=== PATIENT | male | born 1965 | race Caucasian/White ===

== ENCOUNTER 2019-12-14 17:45 | Inpatient (IN) | payer BC ==
[~2019-12-14] VITALS: Ht 190.5 cm; Wt 107.2 kg
[2019-12-14 18:32] LABS: BASOPHILS % (AUTO) 0.3 % (0.0-5.0); EOSINOPHILS % (AUTO) 0.4 % (0.0-8.0); HEMATOCRIT 44.9 % (42-54); LYMPHOCYTES % (AUTO) 20.9 % (21.0-51.0); MEAN CORPUSCULAR HEMOGLOBIN 29.7 pg (27.0-33.0); MEAN CORPUSCULAR HGB CONC 35.4 g/dL (32.0-36.0); MEAN CORPUSCULAR VOLUME 83.9 fL (79-99); MONOCYTES % (AUTO) 6.5 % (3.0-13.0); NEUTROPHILS % (AUTO) 71.6 % (40.0-77.0); PLATELET COUNT (AUTO) 215 K/uL (130-400); RED BLOOD CELL COUNT(AUTO) 5.35 MIL/uL (4.50-6.20); WHITE BLOOD COUNT (AUTO) 13.5 K/uL (4.8-10.8)
[2019-12-14 18:46] LABS: APPEARANCE,URINE Clear (CLEAR); BILIRUBIN,URINE Negative (NEGATIVE); COLOR,URINE Yellow (YELLOW); GLUCOSE, URINE (UA) Negative (NEGATIVE); KETONES,URINE Negative (NEGATIVE); LEUKOCYTE ESTERASE ,URINE Negative (NEGATIVE); NITRATE,URINE Negative (NEGATIVE); OCCULT BLOOD,URINE Negative (NEGATIVE); PROTEIN,URINE 300 mg/dL (NEGATIVE)
[2019-12-14 18:49] LABS: CREATININE 1.1 mg/dL (0.5-1.5); POTASSIUM 3.9 mmol/L (3.5-5.1)
[2019-12-14 18:54] LABS: ALBUMIN 3.9 g/dL (3.5-5.0); BILIRUBIN,TOTAL 0.9 mg/dL (0.2-1.0); TOTAL PROTEIN, SERUM 7.7 g/dL (6.0-8.3)
[2019-12-14 18:54] LABS: RBC,URINE 0-1 /HPF (0-1)
[2019-12-14 18:55] LABS: AMPHET/METH SCREEN,URINE NEGATIVE (NEGATIVE); BACTERIA,URINE Rare /HPF (None Seen); BARBITURATE SCREEN, URINE NEGATIVE (NEGATIVE); BENZODIAZEPINES SCREEN,URINE NEGATIVE (NEGATIVE); CANNABINOID SCREEN,URINE NEGATIVE (NEGATIVE); COCAINE SCREEN,URINE NEGATIVE (NEGATIVE); OPIATE SCREEN,URINE NEGATIVE (NEGATIVE); PHENCYCLIDINE SCREEN,URINE NEGATIVE (NEGATIVE); SQUAMOUS EPITHELIAL CELL,UR Rare /HPF (0-2)
[2019-12-14 19:05] LABS: INR 1.11 (0.85-1.15); PARTIAL THROMBOPLASTIN TIME 28.2 SEC (26.3-35.5); PROTHROMBIN TIME 11.9 SEC (9.6-11.6)
[2019-12-14] MEDS ORDERED: IOHEXOL-350 75 ML VIAL IV ONE (21:49)
[2019-12-14] MEDS ORDERED: ENOXAPARIN SODIUM 100 MG/1 ML SQ ONE (22:55)
[2019-12-14] MEDS ORDERED: SODIUM CHLORIDE 0.9% 1000ML 1,000 ML IV SCH (23:39)
[2019-12-14] MEDS ORDERED: HYDRALAZINE HCL 20 MG/ML VIAL IV PRN (23:45)
[2019-12-14] MEDS ORDERED: MORPHINE SULFATE 2 MG/ML 1ML SYG IV PRN (23:45)
[2019-12-14] MEDS ORDERED: LACTULOSE 20 GM/30 ML UDCUP PO PRN (23:45)
[2019-12-14] MEDS ORDERED: ONDANSETRON HCL 4 MG/2 ML VIAL IV PRN (23:45)
[2019-12-14] MEDS ORDERED: ACETAMINOPHEN 325 MG TAB PO PRN ×2 (23:45)
[2019-12-15] VITALS (20 sets, daily range): BP systolic 88–131; BP diastolic 58–82
[2019-12-15] MEDS ORDERED: ALPRAZOLAM 0.5 MG TABLET PO ONE (00:30)
[2019-12-15] MEDS ORDERED: ALPRAZOLAM 1 MG TAB PO ONE (00:45)
[2019-12-15] MEDS ORDERED: ALPRAZOLAM 1 MG TAB ONE (00:57)
[2019-12-15] MEDS ORDERED: MORPHINE SULFATE 2 MG/ML 1ML SYG ONE (02:36)
[2019-12-15] MEDS ORDERED: ONDANSETRON HCL 4 MG/2 ML VIAL ONE (02:36)
[2019-12-15 04:43] LABS: BASOPHILS % (AUTO) 0.1 % (0.0-5.0); HEMATOCRIT 44.8 % (42-54); LYMPHOCYTES % (AUTO) 13.6 % (21.0-51.0); MEAN CORPUSCULAR HEMOGLOBIN 29.2 pg (27.0-33.0); MEAN CORPUSCULAR HGB CONC 34.2 g/dL (32.0-36.0); MEAN CORPUSCULAR VOLUME 85.5 fL (79-99); MONOCYTES % (AUTO) 4.8 % (3.0-13.0); NEUTROPHILS % (AUTO) 81.2 % (40.0-77.0); PLATELET COUNT (AUTO) 202 K/uL (130-400); RED BLOOD CELL COUNT(AUTO) 5.24 MIL/uL (4.50-6.20); RED CELL DISTRIBUTION WIDTH 13.2 % (11.0-15.5); WHITE BLOOD COUNT (AUTO) 14.7 K/uL (4.8-10.8)
[2019-12-15 04:56] LABS: CREATININE 1.1 mg/dL (0.5-1.5); POTASSIUM 4.6 mmol/L (3.5-5.1)
[2019-12-15] MEDS ORDERED: ALPRAZOLAM 0.25 MG TABLET PO PRN (05:15)
[2019-12-15] MEDS ORDERED: ASPIRIN 325 MG TABLET PO STA (05:26)
[2019-12-15] MEDS ORDERED: ASPIRIN 325 MG TABLET ONE (05:36)
[2019-12-15 07:04] LABS: CHOLESTEROL 141 mg/dL (<200); HDL CHOLESTEROL 41 mg/dL (29-71); LDL DIRECT 83 mg/dL (0-99); TRIGLYCERIDES 113 mg/dL (30-200)
[2019-12-15 07:05] LABS: HEMOGLOBIN A1C 7.6 % (4.0-6.0)
[2019-12-15] MEDS ORDERED: ENOXAPARIN SODIUM 100 MG/1 ML SQ ONE (08:12)
[2019-12-15] MEDS: ENOXAPARIN SODIUM 100 MG/1 ML SQ SCH ×2 (08:33→21:27)
[2019-12-15] MEDS ORDERED: METOPROLOL TARTRATE 25 MG TAB PO SCH (09:00)
[2019-12-15] MEDS ORDERED: INSU3INS5 SQ ×2 (09:19)
[2019-12-15] MEDS: FAMOTIDINE 20MG TAB 20 MG TAB PO SCH ×2 (09:43→21:24)
[2019-12-15] MEDS: INSULIN HUMULIN R 100 UNIT/ML 3ML SQ SCH ×3 (09:45→17:20)
--- NOTE | 2019-12-15 10:21 | NUR ---
DC Plan Discussed dcp with patient. States lives with and 85 y/o mother. Independently performs ADLs. Denies any HH, provider, or DME. States feels safe returning home upon discharge. DCP is to home with . Addendum: 12/15/19 at 1023 by KELSEA CINTRON Amended: Links added.
[2019-12-15] MEDS: ATORVASTATIN CALCIUM 20 MG TABLET PO SCH (21:24)
--- NOTE | 2019-12-15 22:43 | NUR ---
Glucometer results 204 at 2100. States had just finished eating supper. Would like bedside glucose rechecked at midnight. Reassured this would be possible. Comfort measures done. Call light and needed items placed readily at hand. Encouraged to call prn.
[2019-12-16] VITALS (24 sets, daily range): BP systolic 88–141; BP diastolic 30–86
[2019-12-16] MEDS: INSULIN HUMULIN R 100 UNIT/ML 3ML SQ SCH ×5 (00:10→20:46)
[2019-12-16 05:50] LABS: BASOPHILS % (AUTO) 0.3 % (0.0-5.0); EOSINOPHILS % (AUTO) 0.9 % (0.0-8.0); HEMATOCRIT 41.6 % (42-54); LYMPHOCYTES % (AUTO) 27.1 % (21.0-51.0); MEAN CORPUSCULAR HEMOGLOBIN 29.3 pg (27.0-33.0); MEAN CORPUSCULAR HGB CONC 33.9 g/dL (32.0-36.0); MEAN CORPUSCULAR VOLUME 86.5 fL (79-99); MONOCYTES % (AUTO) 5.3 % (3.0-13.0); NEUTROPHILS % (AUTO) 66.1 % (40.0-77.0); PLATELET COUNT (AUTO) 187 K/uL (130-400); RED BLOOD CELL COUNT(AUTO) 4.81 MIL/uL (4.50-6.20); WHITE BLOOD COUNT (AUTO) 11.4 K/uL (4.8-10.8)
[2019-12-16 06:14] LABS: POTASSIUM 4.2 mmol/L (3.5-5.1)
[2019-12-16] MEDS: ASPIRIN 81MG TAB.CHEW PO SCH (08:03)
[2019-12-16] MEDS: ENOXAPARIN SODIUM 100 MG/1 ML SQ SCH ×2 (08:03→20:44)
[2019-12-16] MEDS: FAMOTIDINE 20MG TAB 20 MG TAB PO SCH ×2 (08:03→20:44)
[2019-12-16] MEDS: ATORVASTATIN CALCIUM 20 MG TABLET PO SCH (20:44)
[2019-12-17] VITALS (12 sets, daily range): BP systolic 108–143; BP diastolic 53–89
[2019-12-17] MEDS ORDERED: GUAIFENESIN-DM 200/20 MG 10 ML PO PRN (00:15)
[2019-12-17 03:53] LABS: BASOPHILS % (AUTO) 0.4 % (0.0-5.0); EOSINOPHILS % (AUTO) 1.4 % (0.0-8.0); HEMATOCRIT 39.6 % (42-54); LYMPHOCYTES % (AUTO) 32.6 % (21.0-51.0); MEAN CORPUSCULAR HEMOGLOBIN 29.3 pg (27.0-33.0); MEAN CORPUSCULAR HGB CONC 34.3 g/dL (32.0-36.0); MEAN CORPUSCULAR VOLUME 85.3 fL (79-99); MONOCYTES % (AUTO) 4.9 % (3.0-13.0); NEUTROPHILS % (AUTO) 60.6 % (40.0-77.0); PLATELET COUNT (AUTO) 198 K/uL (130-400); RED BLOOD CELL COUNT(AUTO) 4.64 MIL/uL (4.50-6.20); RED CELL DISTRIBUTION WIDTH 12.8 % (11.0-15.5); WHITE BLOOD COUNT (AUTO) 8.4 K/uL (4.8-10.8)
[2019-12-17 04:05] LABS: POTASSIUM 3.9 mmol/L (3.5-5.1)
[2019-12-17] MEDS: INSULIN HUMULIN R 100 UNIT/ML 3ML SQ SCH ×4 (06:28→21:39)
[2019-12-17] MEDS: FAMOTIDINE 20MG TAB 20 MG TAB PO SCH ×2 (08:17→21:31)
[2019-12-17] MEDS: ASPIRIN 81MG TAB.CHEW PO SCH (08:17)
[2019-12-17] MEDS: ENOXAPARIN SODIUM 100 MG/1 ML SQ SCH ×2 (08:18→21:00)
--- NOTE | 2019-12-17 08:52 | NUR ---
DC Plan Met with patient. Informed tentative plan is for discharge today on [employer] Provided $10 co-pay card and free 30 day card. Patient verbalized understanding to take the cards with prescription to the pharmacy. Also provided literature on Eliquis, provided by [employer] for patient to read up on. No other questions/concerns verbalized. Patient to dc back to home with . CD Addendum: 12/17/19 at 0858 by KELSEA CINTRON CM Amended: Links added.
--- NOTE | 2019-12-17 14:50 | NUR ---
[facility] CONSULT PATIENT ASSESSED REQUESTED: [facility] RECOMMENDATIONS SUBMITTED AND REPORT GIVEN TO PATIENT'S NURSE. Addendum: 12/18/19 at 1451 by JUANY RAMIREZ LVN Amended: Links added.
[2019-12-17] MEDS: APIXABAN 5 MG TABLET PO SCH ×2 (17:54→21:32)
--- NOTE | 2019-12-17 20:30 | NUR ---
AFTER TALKING TO HIS INTERMEDIATE DESIGNER PATIENT STOOD IN IN DOORWAY VERBALIZING HIS INTERMEDIATE DESIGNER STATED HE COULD TRANSFER TO ANOTHER ROOM. REPORT GIVEN TO JOVANI FRANCISCO. PATIENT TRANSFERRED TO ROOM 422 IN NO DISTRESS. VS STABLE.
[2019-12-17] MEDS: HONEY 1 APPL/ML TUBE TP SCH (21:00)
[2019-12-17] MEDS: ATORVASTATIN CALCIUM 20 MG TABLET PO SCH (21:31)
[2019-12-18 00:35] VITALS: BP 143/84
[2019-12-18 05:20] VITALS: BP 144/92
[2019-12-18] MEDS: INSULIN HUMULIN R 100 UNIT/ML 3ML SQ SCH ×2 (08:14→11:46)
[2019-12-18 08:30] VITALS: BP 146/82
[2019-12-18] MEDS: HONEY 1 APPL/ML TUBE TP SCH (09:00)
[2019-12-18] MEDS: FAMOTIDINE 20MG TAB 20 MG TAB PO SCH (09:01)
[2019-12-18] MEDS: ASPIRIN 81MG TAB.CHEW PO SCH (09:01)
[2019-12-18] MEDS ORDERED: PANT40TA PO (10:10)
[2019-12-18] MEDS ORDERED: APIX5TAB PO ×2 (10:10)
[2019-12-18] MEDS ORDERED: POLY17PO4 PO (10:17)
[2019-12-18] MEDS ORDERED: DOCU-116 PO (10:17)
--- NOTE | 2019-12-18 10:34 | NUR ---
ELIQUIS I ATTEMPTED TO GIVE PATIENT HIS SCHEDULED DOSE OF 10MG ELIQUIS, PATIENT STATED HE HAD RECEIVED 10MG DOSE OF ELIQUIS AT 0400 HOURS THIS MORNING, HELD DOSE AND RESCHEDULED WITH PHARMACY. DR. LING WAS NOTIFIED.
[2019-12-18 12:03] VITALS: BP 157/83
[2019-12-18] MEDS ORDERED: APIXABAN 5 MG TABLET PO SCH (15:00)
== END 2019-12-18 14:42 | disposition home or self-care (01) | DRG 299 ==
LOC: EDH 17:45 → EDHIP 23:39 → 2CH 12-15 09:17 → 4DH 12-17 20:44
PROVIDERS: ADMIT Hospitalist; ATTEND Hospitalist
DX: I82.412 Acute embolism and thrombosis of left femoral vein (principal); I26.99 Other pulmonary embolism without acute cor pulmonale; J96.01 Acute respiratory failure with hypoxia; R00.0 Tachycardia, unspecified; R79.89 Other specified abnormal findings of blood chemistry; I11.9 Hypertensive heart disease without heart failure; Z20.828 Contact with and (suspected) exposure to other viral communicable diseases; E11.9 Type 2 diabetes mellitus without complications; J33.8 Other polyp of sinus; Z86.711 Personal history of pulmonary embolism; Z91.041 Radiographic dye allergy status; Z83.3 Family history of diabetes mellitus; Z83.6 Family history of other diseases of the respiratory system; Z82.49 Family history of ischemic heart disease and other diseases of the circulatory system
CPT/HCPCS: 36415; 70450; 71046; 71275; 80048; 80053; 80061; 80305; 81001; 82550; 82948; 83036; 84484; 85025; 85378; 85610; 85730; 87635; 87804; 93005; 93306; 93308; 93880; 93970; G0378; J1650; J1815; J2405; Q9967; U0003

== ENCOUNTER → 2020-01-28 | Outpatient (CLI) | payer BC ==
[~2020-01-28] MED LIST: APIX5TAB PO; DOCU-116 PO; INSU3INS5 SQ; PANT40TA PO; POLY17PO4 PO
== END | disposition home or self-care (01) ==
LOC: SHCH 12:40
PROVIDERS: ATTEND Internal Medicine Cardiovascular Disease
DX: I26.99 Other pulmonary embolism without acute cor pulmonale (principal); I51.7 Cardiomegaly; R55 Syncope and collapse
CPT/HCPCS: 93306

== ENCOUNTER → 2020-10-06 | Outpatient (CLI) | payer BC ==
[~2020-10-06] MED LIST changes: -POLY17PO4 PO
== END | disposition home or self-care (01) ==
LOC: RAH 14:39
PROVIDERS: ATTEND Internal Medicine Cardiovascular Disease
DX: I26.99 Other pulmonary embolism without acute cor pulmonale (principal); Z86.711 Personal history of pulmonary embolism
CPT/HCPCS: 71046; 78582; A9540; A9558

== ENCOUNTER → 2022-03-30 | Outpatient (CLI) | payer OTHER | END | disposition home or self-care (01) | LOC: RAH 14:51 | PROVIDERS: ATTEND Internal Medicine Cardiovascular Disease | DX: I73.9 Peripheral vascular disease, unspecified (principal); I82.401 Acute embolism and thrombosis of unspecified deep veins of right lower extremity | CPT/HCPCS: 93925 ==

== ENCOUNTER 2024-05-19 18:33 | Emergency (ER) | payer OTHER ==
[~2024-05-19] VITALS: Ht 188 cm; Wt 113.4 kg
--- NOTE | 2024-05-19 19:44 | ERN ---
General Chief Complaint: Face Pain/Problem Stated Complaint: JAW PAIN, SWELLING Time Seen by MD: 18:45 Time Seen by Midlevel: 18:45 Source: patient History of Present Illness Initial Comments Patient is a 58-year-old male with a past medical history of generalized anxiety and deep vein thrombosis on Xarelto presenting to the emergency department with left facial pain/pressure that started at 2:30 p.m. today. Patient states he had a very stressful day at work today. He denies any focal weakness, numbness, vision changes, headache, or any other symptoms at this time. He was concerned that he may be having a stroke so he decided to report to the ER for further evaluation. Allergies: Coded Allergies: Iodinated Contrast Media (Verified Allergy, Unknown, 12/14/19) Home Meds Active Scripts Methylprednisolone (Medrol) 4 Mg Tab.ds.pk, 1 TAB PO AD for 6 Days, #21 TAB 0 Refills 6 on day 1 then reduce by one tablet daily until gone Prov:KARISSA CHURCH 05/19/24 Docusate Sodium (Colace) 100 Mg Capsule, 100 MG PO BID PRN for CONSTIPATION for 30 Days, #60 CAP 0 Refills Prov:CHENCHO BATES ACNP 12/18/19 Apixaban (Eliquis) 5 Mg Tablet, 5 MG PO BID for 30 Days, #60 TAB 3 Refills Prov:CHENCHO BATES ACNP 12/18/19 Pantoprazole Sodium (Protonix) 40 Mg Tablet.dr, 40 MG PO DAILY for 30 Days, #30 TAB 2 Refills Prov:CHENCHO BATES ACNP 12/18/19 Reported Medications Insuln Asp Prt/Insulin Aspart (Novolog Mix 70-30 Flexpen Syrn) 100 Unit/1 Ml Insuln.pen, 30 UNIT SQ DAILY, SYRINGE 12/15/19 Insuln Asp Prt/Insulin Aspart (Novolog Mix 70-30 Flexpen Syrn) 100 Unit/1 Ml Ins uln.pen, 20 UNIT SQ HS, SYRINGE 12/15/19 Past Medical History Past Medical History: Diabetes-Type II, Hypertension Medical History Other: PE Past Surgical History: None ROS Dictation CONSTITUTIONAL: Negative except for HPI HEAD/FACE: Negative except for HPI EENT: Negative except for HPI RESPIRATORY: Negative except for HPI GASTROINTESTINAL/ABDOMINAL: Negative except for HPI GENITOURINARY: Negative except for HPI MUSCULOSKELETAL: Negative except for HPI INTEGUMENTARY: Negative except for HPI NEUROLOGICAL/PSYCH: Negative except for HPI HEMATOLOGIC/LYMPHATIC: Negative except for HPI All Systems Negative, Except as noted above. 13 point review of systems assessed and all negative except for above. Physical Exam Physical Exam Dictation Vital Signs reviewed General Appearance: Alert, oriented x 3, no acute distress, well developed, nourished. Head and Face: non-traumatic. Eyes: PERRL, pink conjunctivas, eyelid no trauma, anterior chamber with arcus senilis. Ears: Pinnas intact and no signs of trauma or erythema ear canals clear and no discharge TM no erythema Nose: No discharge, no bleeding. Oropharynx: Mouth normal, tongue pink, pharynx clear,no erythema, tonsils no exudates, no abscesses noted, mucous membrane moist Neck: Supple, non-tender, no thyromegaly, no masses, no JVD, no bruits Breast:Deferred Chest:No tenderness, no crepitus, no paradoxical movement, no retractions Lungs:Clear, well-ventilated, symmetric, no rales, no wheezing, no rhonchi, no stridor, good breath sounds bilaterally Heart: Regular rate, regular rhythm, no murmur, no gallops Vascular: no peripheral edema, Abdomen: Soft, positive bowel sounds, nondistended, no guarding, nontender, no rebound, no masses no hepatomegaly, no splenomegaly, no Hudson's sign, no hernias. Rectal: Deferred Genital: Deferred Neurological: Normal speech, motor function intact, sensory function intact Musculoskeletal: Neck nontender, full range of motion, back nontender, full range of motion, Extremities: nontender, full range of motion Skin: Color pink, dry, no turgor, no rash, no lacerations, no abrasions, no contusions. Lymphatic: Deferred Results Laboratory and Microbiology Lab and Micro Result Laboratory Tests Test 05/19/24 19:20 05/19/24 19:35 Urine Color LIGHT-YELLOW (YELLOW) Urine Appearance CLEAR (CLEAR) Urine pH 5.5 (5.0-8.0) Urine Specific [place] 1.036 (1.001-1.031) Urine Protein NEGATIVE mg/dL (NEGATIVE) Urine Glucose (UA) >=1000 mg/dL (NEGATIVE) H Urine Ketones 40 mg/dL (NEGATIVE) H Urine Occult Blood NEGATIVE (NEGATIVE) Urine Nitrate NEGATIVE (NEGATIVE) Urine Bilirubin NEGATIVE mg/dL (NEGATIVE) Urine Urobilinogen 0.2 mg/dL (0.2-1.0) Urine Leukocyte Esterase NEGATIVE Jeffry/uL Urine RBC 0-1 /HPF (0-1) Urine WBC 2-5 /HPF (0-1) H Urine Bacteria None /HPF (None Seen) White Blood Count 9.1 K/uL (4.8-10.8) Red Blood Count 5.54 MIL/uL (4.50-6.20) Hemoglobin 16.7 g/dL (14.0-18.0) Hematocrit 48.3 % (42-54) Mean Corpuscular Volume 87.2 fL (79-99) Mean Corpuscular Hemoglobin 30.1 pg (27.0-33.0) Mean Corpuscular Hemoglobin Concent 34.6 g/dL (32.0-36.0) Red Cell Distribution Width 13.5 % (11.0-15.5) Platelet Count 220 K/uL (130-400) Mean Platelet Volume 10.5 fL (7.5-10.5) Immature Granulocyte % (Auto) 0.3 % (0-1) Neutrophils (%) (Auto) 66.7 % (40.0-77.0) Lymphocytes (%) (Auto) 27.0 % (21.0-51.0) Monocytes (%) (Auto) 5.0 % (3.0-13.0) Eosinophils (%) (Auto) 0.6 % (0.0-8.0) Basophils (%) (Auto) 0.4 % (0.0-5.0) Neutrophils # (Auto) 6.0 K/uL (1.8-7.7) Lymphocytes # (Auto) 2.5 K/uL (1.0-4.8) Monocytes # (Auto) 0.5 K/uL (0.1-1.0) Eosinophils # (Auto) 0.05 K/uL (0.00-0.70) Basophils # (Auto) 0.04 K/uL (0.00-0.20) Absolute Immature Granulocyte (auto 0.03 K/uL (0-1) Nucleated Red Blood Cells 0.0 % (0.0-0.19) Sodium Level 139 mmol/L (136-145) Potassium Level 4.1 mmol/L (3.5-5.1) Chloride Level 102 mmol/L (101-111) Carbon Dioxide Level 29 mmol/L (21-32) Blood Urea Nitrogen 12 mg/dL (7-18) Creatinine 1.0 mg/dL (0.5-1.3) Glomerular Filtration Rate Calc 86 mL/min (>90) Random Glucose 144 mg/dL (70-105) H Total Calcium 8.6 mg/dL (8.5-10.1) Labs Reviewed?: Yes MDM MDM: Patient is a 58-year-old male with a past medical history of generalized anxiety and deep vein thrombosis on Xarelto presenting to the emergency department with left facial pain/pressure that started at 2:30 p.m. today. Patient states he had a very stressful day at work today. He denies any focal weakness, numbness, vision changes, headache, or any other symptoms at this time. He was concerned that he may be having a stroke so he decided to report to the ER for further evaluation. On physical examination patient is neurologically intact. There was no facial droop. Patient has a GCS of 15 and is alert and oriented x4. He was able to ambulate from the triage area into the examination room with a normal gait without assistance. His physical examination is unremarkable. His vital signs are stable. His cranial nerves are intact. His CBC and chemistries are unremarkable. His urine does not show any evidence of infection. His CT scan is negative for any acute intracranial abnormality. I do not believe patient was having a stroke. There might be a c omponent of anxiety. The pain may also be neuropathic in nature I will go ahead and prescribed pain medication along with the steroids for supportive management. Patient was advised to follow up with his PCP in 2-3 days for repeat evaluation. Return precautions discussed Differential diagnosis: Electrolyte abnormality, dehydration, intracranial bleed There are no social concerns with this patient. Prescription drug management Prescriptions will include: Medrol pack Medical management and examination interpretation discussions were had by me with other qualified healthcare professionals as indicated for the patient's care. ED Course Orders Procedure Category Date Status Time Cbc With Differential LAB 05/19/24 Complete 19:09 Basic Metabolic Panel LAB 05/19/24 Complete 19: Urinalysis Profile LAB 05/19/24 Complete 19:09 Ct Head/Brain W/O CT 05/19/24 Resulted Contrast 19:09 Vital Signs Date Time Temp Pulse Resp B/P (MAP) Pulse Ox O2 Delivery O2 Flow Rate FiO2 05/19/24 20:00 98.4 81 18 128/73 99 Room Air* 0 21 05/19/24 18:40 97.9 86 16 153/79 95 Room Air 0 [facility] [address] [place] [address] IMAGING REPORT Signed PATIENT: ISAAC LEE MR#: [id number] : 1965 SEX: M AGE: 58 LOCATION: [facility] ORDER 09 STATUS: REG ER REPORT#: [id number] SERVICE 08 REASON: left facial numbness/pain ORDERING PHYSICIAN: KARISSA CHURCH PROCEDURE: HEAD WO - CT HEAD/BRAIN W/O CONTRAST Exam: NONCONTRAST CT BRAIN REASON: left facial numbness/pain. COMPARISON: 12/15/2019 TECHNIQUE: Images are obtained from vertex to the skull base. The exam was performed without IV contrast. FINDINGS: There is normal appearing brain parenchyma. There are no focal mass lesions. There is is no evidence of intracranial hemorrhage or acute stroke. Ventricles and sulci appear normal. Posterior fossa and brainstem structures are unremarkable. Paranasal sinuses and remaining extracranial soft tissues appear normal as well. IMPRESSION: 1. Normal noncontrast CT brain. CT was performed with one or more following dose reduction techniques: automated exposure control, adjustment of the mA and kv according to patient's size, or use of a iterative reconstruction technique. DICTATED BY: ZAINA RAZA MD DATE: 05/19/242131 ELECTRONICALLY SIGNED BY: ZAINA RAAZ MD DATE: 05/19/242134 DX & DISP Disposition: Discharge Departure Impression: Primary Impression: Left facial pressure and pain Condition: Stable Scripts Methylprednisolone (Medrol) 4 Mg Tab.ds.pk 1 TAB PO AD for 6 Days, #21 TAB 0 Refills 6 on day 1 then reduce by one tablet daily until gone Prov: KARISSA CHURCH 05/19/24 Additional Instructions: Your blood work today is unremarkable. Your CT scan of the head is negative for any acute abnormality. Your symptoms may be neuropathic in nature. I will go ahead and prescribe you a prescription for a Medrol pack which should help with any inflammation. I did not prescribe you Toradol given that there is a documented interaction with the blood thinner the ER currently taking. Please follow up with your primary care doctor in 2-3 days for repeat evaluation. Return to the ER for any new or worsening symptoms Referrals: CORY HERNANDEZ MD (PCP) Time of Disposition: 21:40 I have reviewed the case, and I agree with, Diagnosis and Plan I performed the substantive portion of the visit. I have reviewed and personally made and approve the management plan that is documented in the note by myself or the JOSEFA. I acknowledge for responsibility for the patient's management plan. KARISSA CHURCH May 19, 2024 19:44
[2024-05-19 19:47] LABS: BASOPHILS # (AUTO) 0.04 K/uL (0.00-0.20); BASOPHILS % (AUTO) 0.4 % (0.0-5.0); EOSINOPHILS # (AUTO) 0.05 K/uL (0.00-0.70); EOSINOPHILS % (AUTO) 0.6 % (0.0-8.0); HEMATOCRIT 48.3 % (42-54); IMMATURE GRANULOCYTE ABSOLUTE 0.03 K/uL (0-1); LYMPHOCYTES # (AUTO) 2.5 K/uL (1.0-4.8); MEAN CORPUSCULAR HEMOGLOBIN 30.1 pg (27.0-33.0); MEAN CORPUSCULAR HGB CONC 34.6 g/dL (32.0-36.0); MEAN CORPUSCULAR VOLUME 87.2 fL (79-99); MONOCYTES # (AUTO) 0.5 K/uL (0.1-1.0); NEUTROPHILS % (AUTO) 66.7 % (40.0-77.0); PLATELET COUNT (AUTO) 220 K/uL (130-400); RED BLOOD CELL COUNT(AUTO) 5.54 MIL/uL (4.50-6.20); RED CELL DISTRIBUTION WIDTH 13.5 % (11.0-15.5); WHITE BLOOD COUNT (AUTO) 9.1 K/uL (4.8-10.8)
[2024-05-19 19:58] LABS: POTASSIUM 4.1 mmol/L (3.5-5.1)
[2024-05-19 20:04] LABS: APPEARANCE,URINE CLEAR (CLEAR); BILIRUBIN,URINE NEGATIVE (NEGATIVE); COLOR,URINE LIGHT-YELLOW (YELLOW); GLUCOSE, URINE (UA) >=1000 mg/dL (NEGATIVE); KETONES,URINE 40 mg/dL (NEGATIVE); LEUKOCYTE ESTERASE ,URINE NEGATIVE Leu/uL (NEGATIVE); NITRATE,URINE NEGATIVE (NEGATIVE); OCCULT BLOOD,URINE NEGATIVE (NEGATIVE); PH,URINE 5.5 (5.0-8.0); PROTEIN,URINE NEGATIVE (NEGATIVE); UROBILINOGEN,URINE 0.2 mg/dL (0.2-1.0)
[2024-05-19 20:06] LABS: ADD UA MICROSCOPIC YES
[2024-05-19 20:10] LABS: RBC,URINE 0-1 /HPF (0-1)
--- NOTE | 2024-05-19 21:35 | HMCIMG ---
Exam: NONCONTRAST CT BRAIN REASON: left facial numbness/pain. COMPARISON: 12/15/2019 TECHNIQUE: Images are obtained from vertex to the skull base. The exam was performed without IV contrast. FINDINGS: There is normal appearing brain parenchyma. There are no focal mass lesions. There is is no evidence of intracranial hemorrhage or acute stroke. Ventricles and sulci appear normal. Posterior fossa and brainstem structures are unremarkable. Paranasal sinuses and remaining extracranial soft tissues appear normal as well. IMPRESSION: 1. Normal noncontrast CT brain. CT was performed with one or more following dose reduction techniques: automated exposure control, adjustment of the mA and kv according to patient's size, or use of a iterative reconstruction technique.
[2024-05-19] MEDS ORDERED: METH4TAB3 PO (21:41)
[2024-05-19 21:46] VITALS: BP 132/70; PULSE 88; RESP 18; TEMP 98.4; O2SAT 95
== END 2024-05-19 21:51 | disposition home or self-care (01) ==
LOC: EDH 18:33
DX: R51.9 Headache, unspecified (principal); E11.9 Type 2 diabetes mellitus without complications; I10 Essential (primary) hypertension; Z79.01 Long term (current) use of anticoagulants; Z79.4 Long term (current) use of insulin; Z79.899 Other long term (current) drug therapy; Z91.041 Radiographic dye allergy status
CPT/HCPCS: 36415; 70450; 80048; 81001; 85025; 99284